=== PATIENT | female | born 1970 | race Caucasian/White ===

== ENCOUNTER 2018-01-15 11:42 | Emergency (ER) | payer BC, OTHER ==
[~2018-01-15] VITALS: Ht 170.2 cm; Wt 114.8 kg
[2018-01-15 11:44] VITALS: BP 129/71
--- NOTE | 2018-01-15 11:50 | NUR ---
PATIENT AMBULATED TO BED 7.
--- NOTE | 2018-01-15 11:54 | NUR ---
PATIENT PRESENTS TO ED WITH C/O RT SIDE THORACIC BACK PAIN, DENIES TRAUMA OR INJURY, SINCE THIS MORNING. PT ALSO REPORT PAIN AHS BEEN INTERMITTEN FOR PAST MONTH. STATES SHE WOKE UP WITH PAIN AT 6AM THIS MORNING FOR THIS EPISODE. -BRUISING, - SWELLING, -BULDGING. DENIES ANY OTHER INJURY. HX: SANGITA
--- NOTE | 2018-01-15 12:09 | NUR ---
DR BRADSHAW EVALUATING AAO PT AT BEDSIDE
[2018-01-15] MEDS ORDERED: KETOROLAC 60 MG/2 ML VIAL IM ONE (12:10)
[2018-01-15] MEDS ORDERED: METHOCARBAMOL 500 MG TAB PO ONE (12:10)
[2018-01-15] MEDS ORDERED: MORPHINE SULFATE 4 MG/ML SYR IM ONE (13:20)
[2018-01-15] MEDS ORDERED: ONDANSETRON 4 MG ODT PO ONE (13:30)
[2018-01-15] MEDS ORDERED: ONDANSETRON 4 MG TAB ONE (13:31)
[2018-01-15 15:06] VITALS: BP 122/71
--- NOTE | 2018-01-15 15:06 | NUR ---
Patient discharged with v/s stable. Written and verbal after care instructions given and explained. Patient alert, oriented and verbalized understanding of instructions. Ambulatory with steady gait. All questions addressed prior to discharge. ID band removed. Patient advised to follow up with PMD. Rx of ROBAXIN, MOTRIN, LIDODERM PATCH given. Patient educated on indication of medication including possible reaction and side effects. Opportunity to ask questions provided and answered.
== END 2018-01-15 15:06 | disposition home or self-care (01) ==
LOC: MED 11:42
DX: M54.5 Low back pain (principal); E11.9 Type 2 diabetes mellitus without complications; Z90.710 Acquired absence of both cervix and uterus
CPT/HCPCS: 81002; 81025; 96372; 99284; J1885; J2270; S0119; Q0162